=== PATIENT | male | born 1945 | race Caucasian/White ===

== ENCOUNTER → 2017-06-05 | Day surgery (SDC) | payer MEDICARE ==
[~2017-06-05] VITALS: Ht 157.5 cm; Wt 73.6 kg
[~2017-06-05] MED LIST: CHLORHEXIDINE GLUCONATE 2 % 1 PACK (2 CLOTHS) TOPICAL PRN; FLURBIPROFEN 0.03% OPHT SOLN 2.5 ML BTL RIGHT EYE SCH; HYALURONIDASE/LIDOCAINE/BUPIVACAINE 5 ML SYR ONE; HYDR25TA5 PO; INSULIN HUMAN REGULAR 1,000 UNITS/10 ML VIAL SQ PRN; LACTATED RINGER'S 1000 ML IV PRN; LIDOCAINE HCL 1% PF 30 ML VIAL ONE; LISI40TA PO; METF500T PO; METOPROLOL TARTRATE 25 MG TAB PO PRN; POVIDONE IODINE 5% (ANTISEPSIS KIT) 4 APPLICATIONS EACH NARE PRN; PROPARACAINE HCL 0.5% OPHT SOLN 15 ML BTL RIGHT EYE ONE; PROPOFOL 200 MG/20 ML AMP ONE; SIMV40TA PO; SODIUM CHLORID 0.9% 500 ML IV PRN; TOBRAMYCIN/DEXAMETHASONE OPTH OINT 3.5 GM TUBE ONE
[2017-06-05 08:00] VITALS: PULSE 67
[2017-06-05] MEDS: PHENYLEPHRINE HCL 10% OPTH SOLN 5 ML BTL RIGHT EYE SCH ×4 (08:05→08:20)
[2017-06-05] MEDS: TROPICAMIDE 1% OPHT SOLN 15 ML BTL RIGHT EYE SCH ×4 (08:05→08:20)
[2017-06-05] MEDS: CYCLOPENTOLATE HCL 1% OPHT SOLN 2 ML BTL RIGHT EYE SCH ×4 (08:05→08:20)
[2017-06-05 08:45] VITALS: PULSE 71
[2017-06-05 09:41] VITALS: TEMP 98.2
[2017-06-05 10:10] VITALS: BP 121/65; PULSE 71; RESP 14; O2SAT 97
--- NOTE | 2017-06-05 10:14 | MP ---
cc: WAYNE SINGH M.D. FORMERLY [facility], [facility] #[id number] DATE OF SURGERY 06/05/2017 PREOPERATIVE DIAGNOSIS Visually significant cataract right eye. POSTOPERATIVE DIAGNOSIS Visually significant cataract right eye. OPERATION Phacoemulsification with posterior chamber lens implantation, right eye. SURGEON Wayne Singh MD ANESTHESIA Retrobulbar with MAC. COMPLICATIONS None PROCEDURE After informed consent was obtained, the patient was brought into the operative suite and placed on appropriate monitors by the Anesthesia Service. The patient had received a prior retrobulbar injection of local anesthetic by the Anesthesia Service in the holding area. The patient's operative eye was then prepped and draped in the usual sterile fashion. A wire lid speculum was placed. A paracentesis incision was made in the peripheral cornea with a 1 mm jazmin keratome. The anterior chamber was filled with viscoelastic. The anterior chamber was then entered through a stepped, clear corneal incision using a sharp 3 mm jazmin keratome. A circular tear capsulorrhexis was then made with a bent needle cystitome. Following hydrodissection of the lens nucleus with balanced saline, phacoemulsification of the nucleus was performed using a modified chopping technique. The remaining cortex was removed with irrigation/aspiration. The prior two procedures were both performed using the handpieces of the [employer] phaco unit. The capsular bag was then filled with viscoelastic. The intraocular lens was then injected into the capsular bag and positioned. The type of intraocular lens and its power can be found elsewhere in this chart. The remaining viscoelastic was then removed from the anterior chamber with the IA handpiece. The anterior chamber was reformed with balanced saline. The wound was then closed securely with stromal hydration. It was found to be watertight to an intraocular pressure of at least 30 mmHg by palpation. A small amount of balanced salt solution was then removed through the paracentesis site and the intraocular pressure at the end of the case was approximately 20 by palpation. All drapes were then removed. TobraDex ointment was then placed in the eye, which was closed beneath a semi-pressure patch dressing. The patient tolerated this procedure well and left the operating room awake and alert. The patient is to follow-up in my office in the morning. ADDENDUM After the clear corneal incisions were sealed water-tight, an 8-mm limbal relaxing incision was made with a 600 micron jazmin blade, centered around a nasal 180 degree meridian. MD GINA Bearden/JEANMARIE /10:07 AM /10:09 AM
== END | disposition home or self-care (01) ==
LOC: PHSDC 07:01
PROVIDERS: ATTEND Optometrist Occupational Vision
DX: H25.11 Age-related nuclear cataract, right eye (principal)
CPT/HCPCS: 00142; 66984; J7040; V2632

== ENCOUNTER 2018-04-09 08:49 | Inpatient (IN) ==
[2018-04-09] MEDS ORDERED: Metoprolol Inj 5 MG/5 ML Vial IV.PUSH STA ×2 (09:02→09:38)
[2018-04-09 09:19] LABS: Baso # (Auto) 0.2 th/mm3 (0.0-0.2); Baso % (Auto) 1.7 % (0.0-2.0); Eos # (Auto) 0.1 th/mm3 (0.0-0.4); Eos % (Auto) 1.3 % (0.0-4.0); Hematocrit 43.5 % (39.0-51.0); Hemoglobin 14.5 gm/dL (13.0-17.0); Lymph # (Auto) 1.1 th/mm3 (1.0-4.8); Lymph % (Auto) 11.7 % (9.0-44.0); Mean Corpuscular HGB Conc 33.4 % (32.0-36.0); Mean Corpuscular Hemoglobin 30.4 pg (27.0-34.0); Mean Platelet Volume 8.7 fL (7.0-11.0); Mono # (Auto) 0.5 th/mm3 (0.0-0.9); Neut # (Auto) 7.7 th/mm3 (1.8-7.7); Neut % (Auto) 80.3 % (16.0-70.0); Platelet Count 236 th/mm3 (150-450); Red Blood Count 4.78 mil/mm3 (4.50-5.90); White Blood Count 9.6 th/mm3 (4.0-11.0)
[2018-04-09 09:52] LABS: Albumin 3.8 g/dL (3.4-5.0); Carbon Dioxide 24.5 meq/L (21.0-32.0)
[2018-04-09 09:53] LABS: Calcium 8.7 mg/dL (8.5-10.1); Glucose,Random 142 mg/dL (74-106)
[2018-04-09 09:56] LABS: Alanine Aminotransferase 22 U/L (12-78); Glomerular Filtration Rate 50 mL/min (>89)
[2018-04-09 09:57] LABS: Anion Gap 10 meq/L (5-15); Chloride 105 meq/L (98-107); Potassium 4.4 meq/L (3.5-5.1); Sodium 139 meq/L (136-145); Total Protein 7.7 g/dL (6.4-8.2)
[2018-04-09 09:58] LABS: Aspartate Aminotransferase 23 U/L (15-37)
--- NOTE | 2018-04-09 09:58 | XR ---
EXAM DATE: 04/09/2018 9:38 AM EDT AGE/SEX: 72 years / Male INDICATIONS: Increased heart rate. CLINICAL DATA: This is the patient's initial encounter. Patient reports that signs and symptoms have been present for 1 day and indicates a pain score of 0/10. MEDICAL/SURGICAL HISTORY: Hypertension. None. COMPARISON: No prior exams available for comparison. FINDINGS: A single AP view of the chest demonstrates the lungs to be symmetrically aerated without evidence of mass, infiltrate or effusion. The cardiomediastinal contours are unremarkable. Osseous structures a re intact. CONCLUSION: Negative examination. Electronically signed by: Oleg Campa MD 04/09/2018 9:57 AM EDT
[2018-04-09 09:59] LABS: Alkaline Phosphatase 105 U/L (45-117); Creatine Kinase 184 U/L (39-308)
[2018-04-09 10:06] LABS: Blood Urea Nitrogen 22 mg/dL (7-18)
[2018-04-09 10:17] LABS: Creatine Kinase MB 2.4 ng/mL (0.5-3.6)
[2018-04-09] MEDS ORDERED: dilTIAZem Inj 125 MG in Sodium Chlor 0.9% Inj 100 ML IV.CONT PRN (10:37)
--- NOTE | 2018-04-09 11:13 | ED ---
HPI General Chief complaint: Arrhythmia/Palpitations Stated complaint: Cardiac complaint Time Seen by Provider: 04/09/18 08:56 History of Present Illness HPI narrative: 72 male here for evaluation new onset A. fib. Patient was scheduled to have cataract surgery this morning, was found to have A. fib with RVR on the monitor, was sent from the preop floor to the ER for further evaluation. Patient currently has no chest pain or swelling or any complaints, he says he feels "fine". Denies any symptoms in the past, he never had A. fib bad before, he only has history of hypertension and dyslipidemia. He takes metformin for prediabetes. Related Data Home Medications Medication Instructions Recorded Confirmed hydrochlorothiazide 25 mg PO DAILY 04/08/18 04/09/18 lisinopril 40 mg PO DAILY 04/08/18 04/09/18 metformin 500 mg PO DAILY 04/08/18 04/09/18 simvastatin 40 mg PO QPM 04/08/18 04/09/18 Previous Rx's Medication Instructions Recorded apixaban [Eliquis] 5 mg PO BID 30 Days #60 tab 04/09/18 metoprolol tartrate 25 mg PO BID 30 Days #60 tab 04/09/18 Allergies Allergy/AdvReac Type Severity Reaction Status Date / Time bee venom protein (honey bee) Allergy Intermediate EDEMA Verified 04/09/18 08:10 Review of Systems ROS: all other systems reviewed are negative FOR[facility]LY [facility] Medical History Medical History Cataract, left eye (Acute) Chronic kidney disease (Acute) Fuchs' corneal dystrophy (Acute) Herniated cervical disc (Acute) History of needle biopsy (Acute) Hyperlipidemia (Acute) Hypertension (Acute) Lumbar radiculopathy (Acute) Prostate cancer (Acute) Type 2 diabetes mellitus (Acute) Vitamin D deficiency (Acute) Surgical History Surgical History History of Descemet's stripping endothelial keratoplasty (DSEK) (Acute) History of right cataract surgery (Acute) Hx of colonoscopy (Acute) Social History Social History Substance History: No History of Abuse Smoking Status: Never smoker How Often Do You Have a Drink Containing Alcohol: Never Immunization History Tetanus Immunization: <5 Years Hx Influenza Vaccine This Season: Yes Exam Narrative Exam Narrative: GENERAL: Alert oriented 3 no acute distress. SKIN: Focused skin assessment warm/dry. HEAD: Atraumatic. Normocephalic. EYES: Pupils equal and round. No scleral icterus. No injection or drainage. ENT: No nasal bleeding or discharge. Mucous membranes pink and moist. NECK: Trachea midline. No JVD. CARDIOVASCULAR: Regular rate and rhythm. No murmur appreciated. RESPIRATORY: No accessory muscle use. Clear to auscultation. Breath sounds equal bilaterally. GASTROINTESTINAL: Abdomen soft, non-tender, nondistended. Hepatic and splenic margins not palpable. MUSCULOSKELETAL: No obvious deformities. No clubbing. No cyanosis. No edema. NEUROLOGICAL: Awake and alert. No obvious cranial nerve deficits. Motor grossly within normal limits. Normal speech. PSYCHIATRIC: Appropriate mood and affect; insight and judgment normal. Course Initial Documented Vital Signs Temperature 97.1 F L 04/09/18 09:01 Pulse Rate 144 H 04/09/18 09:01 Respiratory Rate 18 04/09/18 09:01 Blood Pressure 109/67 04/09/18 09:01 Pulse Oximetry 95 04/09/18 09:01 Last Documented Vital Signs Temperature 98.0 F 04/09/18 13:45 Pulse Rate 53 L 04/09/18 15:01 Respiratory Rate 17 04/09/18 15:01 Blood Pressure 124/61 04/09/18 15:01 Pulse Oximetry 99 04/09/18 15:01 Medical Decision Making [facility] Narrative Medical decision making narrative: 72 male new onset A. fib with RVR, received 2.5 mg of Lopressor, repeat doses of 5 mg with no adequate response, Cardizem drip started for rate control, patient is asymptomatic, blood pressure is stable , EKG shows A. fib with RVR. I spoke with Dr. Boateng special needs tutor secured entrance monitor he recommends that to send the patient to the [facility] ambulation as needed meanwhile patient will be admitted for further evaluation. Medical Screen Exam Complete: Yes Emergency Medical Condition: Yes Lab Data Result diagrams: 04/09/18 09:15 04/09/18 09:15 Lab Results 04/09/18 04/09/18 04/09/18 Range/Units 09:15 09:15 09:15 CBC w Diff Auto diff final WBC 9.6 (4.0-11.0) th/mm3 RBC 4.78 (4.50-5.90) mil/mm3 Hgb 14.5 (13.0-17.0) gm/dL Hct 43.5 (39.0-51.0) % MCV 91.0 (80.0-100.0) fL MCH 30.4 (27.0-34.0) pg MCHC 33.4 (32.0-36.0) % RDW 13.0 (11.6-17.2) % Plt Count 236 (150-450) th/mm3 MPV 8.7 (7.0-11.0) fL Neut % (Auto) 80.3 H (16.0-70.0) % Lymph % (Auto) 11.7 (9.0-44.0) % [place] % (Auto) 5.0 (0.0-8.0) % Eos % (Auto) 1.3 (0.0-4.0) % Baso % (Auto) 1.7 (0.0-2.0) % Neut # (Auto) 7.7 (1.8-7.7) th/mm3 Lymph # (Auto) 1.1 (1.0-4.8) th/mm3 [place] # (Auto) 0.5 (0.0-0.9) th/mm3 Eos # (Auto) 0.1 (0.0-0.4) th/mm3 Baso # (Auto) 0.2 (0.0-0.2) th/mm3 WBC Differential . Differential Comment . D-Dimer Quant (PE/DVT) 0.41 (0.00-0.50) mg/L FEU Sodium (136-145) meq/L Potassium (3.5-5.1) meq/L Chloride (98-107) meq/L Carbon Dioxide (21.0-32.0) meq/L Anion Gap (5-15) meq/L BUN (7-18) mg/dL Creatinine (0.60-1.30) mg/dL Estimated GFR (>89) mL/min Random Glucose (74-106) mg/dL Calcium (8.5-10.1) mg/dL Total Bilirubin (0.2-1.0) mg/dL AST (15-37) U/L ALT (12-78) U/L Alkaline Phosphatase (45-117) U/L Total Creatine Kinase (39-308) U/L CK-MB (CK-2) (0.5-3.6) ng/mL Troponin I (0.02-0.05) ng/mL B-Natriuretic Peptide 37 (0-100) pg/mL Total Protein (6.4-8.2) g/dL Albumin (3.4-5.0) g/dL 04/09/18 04/09/18 Range/Units 09:15 15:20 CBC w Diff WBC (4.0-11.0) th/mm3 RBC (4.50-5.90) mil/mm3 Hgb (13.0-17.0) gm/dL Hct (39.0-51.0) % MCV (80.0-100.0) fL MCH (27.0-34.0) pg MCHC (32.0-36.0) % RDW (11.6-17.2) % Plt Count (150-450) th/mm3 MPV (7.0-11.0) fL Neut % (Auto) (16.0-70.0) % Lymph % (Auto) (9.0-44.0) % [place] % (Auto) (0.0-8.0) % Eos % (Auto) (0.0-4.0) % Baso % (Auto) (0.0-2.0) % Neut # (Auto) (1.8-7.7) th/mm3 Lymph # (Auto) (1.0-4.8) th/mm3 [place] # (Auto) (0.0-0.9) th/mm3 Eos # (Auto) (0.0-0.4) th/mm3 Baso # (Auto) (0.0-0.2) th/mm3 WBC Differential Differential Comment D-Dimer Quant (PE/DVT) (0.00-0.50) mg/L FEU Sodium 139 (136-145) meq/L Potassium 4.4 (3.5-5.1) meq/L Chloride 105 (98-107) meq/L Carbon Dioxide 24.5 (21.0-32.0) meq/L Anion Gap 10 (5-15) meq/L BUN 22 H (7-18) mg/dL Creatinine 1.40 H (0.60-1.30) mg/dL Estimated GFR 50 L (>89) mL/min Random Glucose 142 H (74-106) mg/dL Calcium 8.7 (8.5-10.1) mg/dL Total Bilirubin 0.4 (0.2-1.0) mg/dL AST 23 (15-37) U/L ALT 22 (12-78) U/L Alkaline Phosphatase 105 (45-117) U/L Total Creatine Kinase 184 (39-308) U/L CK-MB (CK-2) 2.4 (0.5-3.6) ng/mL Troponin I Less than 0.02 L Less than 0.02 L (0.02-0.05) ng/mL B-Natriuretic Peptide (0-100) pg/mL Total Protein 7.7 (6.4-8.2) g/dL Albumin 3.8 (3.4-5.0) g/dL Imaging Data Radiologist's impression: Chest X-Ray 04/09/18 09:03 CONCLUSION: Negative examination. Discharge Plan Discharge Disposition Patient Disposition: 01 Discharge Home Discharge Condition Condition: Stable Discharge Order Discharge Orders: Discharge Order (Routine); Ordered 04/09/18 Ordered By: Marta Moseley Discharge Details Anticipated Discharge Date: 04/09/18 Physicians Team ED Provider: Parish Mondragon Primary Care Provider: Aric Boateng Attending Provider: Jaret Hernandez Other Providers: Lobito Boateng Status ED Status: Left Department Discharge Information Discharge Date/Time: 04/09/18 13:04
[2018-04-09] MEDS ORDERED: Acetaminophen 325 MG Tablet PO PRN (12:07)
[2018-04-09] MEDS ORDERED: Dextrose 50% in Water 50 ML Vial IV.PUSH PRN ×2 (12:08→12:26)
[2018-04-09] MEDS ORDERED: Sod Chloride 0.9% Inj 1,000 ML IV.CONT SCH (12:15)
[2018-04-09] MEDS ORDERED: Bisacodyl 10 MG Supp RECTAL PRN (12:29)
--- NOTE | 2018-04-09 12:38 | P.HP ---
History of Present Illness Service: CP hospitalist Primary Care Physician: Aric Boateng Chief Complaint: sent by OR for atrial fib History of Present Illness: HPI narrative: 72 male here for evaluation new onset A. fib. Patient was scheduled to have cataract surgery this morning, was found to have A. fib with RVR on the monitor, was sent from the preop floor to the ER for further evaluation. Patient currently has no chest pain or swelling or any complaints, he says he feels "fine". Denies any symptoms in the past, he never had A. fib bad before, he only has history of hypertension and dyslipidemia. He takes metformin for prediabetes. Patient was given doses of metoprolol without success and started on cradiazem drip ,with improvement in heart rate will transfer to hospital [facility] consult cardiology get 2d echo. - Diagnosis (1) Atrial fibrillation (2) Hypertension Inpatient Certification: I certify that the inpatient services were ordered in accordance with Medicare regulations governing the order. This includes certification that hospital inpatient services are reasonable and necessary and in the case of services not specified as inpatient-only under 42 CFR 419.22(n), that they are appropriately provided as inpatient services in accordance to with the 2-midnight benchmark under 43 CFR 412.3(e) Estimated Total Length of Stay (Days): 3 Plans for Post Hospital Care: Not yet determined Review of Systems All other systems reviewed negative except as stated in HPI PMFSH - History History Provided By: Patient, Family Member - Medical History Medical History: Medical History (Last Updated 04/08/18 @ 11:53 by Dudley Bear) Cataract, left eye Chronic kidney disease Fuchs' corneal dystrophy Herniated cervical disc History of needle biopsy Hyperlipidemia Hypertension Lumbar radiculopathy Prostate cancer Type 2 diabetes mellitus Vitamin D deficiency - Surgical History Surgical History: Surgical History (Last Updated 04/08/18 @ 11:53 by Dudley Bear) History of Descemet's stripping endothelial keratoplasty (DSEK) History of right cataract surgery Hx of colonoscopy - Tobacco History Smoking Status: Never smoker - Alcohol History How Often Do You Have a Drink Containing Alcohol: Never - Substance Use History Substance History: No History of Abuse - Travel History Recent Travel in the [place] Within the Last 8 Weeks: No Recent Travel Out of the Country Within the Last 8 Weeks: No - Immunization History Tetanus Immunization: <5 Years Hx Influenza Vaccine This Season: Yes Medications and Allergies Active Medications: Active Medications Acetaminophen (Tylenol) 650 mg PO Q4H PRN PRN Reason: Temp > 100.4 Al Hydroxide/Mg Hydroxide (Milk Of Collins Liq) 30 ml PO Q12H PRN PRN Reason: Mild Constipation Bisacodyl (Dulcolax Supp) 10 mg RECTAL DAILY PRN PRN Reason: SEVERE CONSITIPATION Dextrose (D50w Vial) 50 ml IV.PUSH UNSCH PRN PRN Reason: PER HYPOGLYCEMIA PROTOCOL Dextrose (D50w Vial) 50 ml IV.PUSH UNSCH PRN PRN Reason: PER HYPOGLYCEMIA PROTOCOL Glucagon (Glucagon Inj) 1 mg OTHER PRN PRN PRN Reason: for Hypoglycemia Protocol Glucagon (Glucagon Inj) 1 mg OTHER PRN PRN PRN Reason: for Hypoglycemia Protocol Hydrochlorothiazide (Hydrodiuril) 25 mg PO DAILY [facility] Diltiazem HCl 125 mg/ Sodium (Chloride) 125 mls @ 5 mls/hr IV.CONT TITRATE PRN ; Protocol PRN Reason: Per Protocol Last Titration: 04/09/18 12:17 Dose: 15 mg/hr, 15 mls/hr Sodium Chloride (Ns Inj) 1,000 mls @ 75 mls/hr IV.CONT .[id number] SHITAL Stop: 04/10/18 01:34 Last Admin: 04/09/18 12:20 Dose: 75 mls/hr Insulin Aspart (Novolog Insulin Correctional Sugar Inj) 0 unit SQ ACHS SHITAL; Protocol Insulin Human Regular (Novolin R Correctional Sugar Inj) 0 units SQ Q6HR SHITAL; Protocol Non-Formulary Medication (Lisinopril [Lisinopril]) 40 mg PO DAILY [facility] Non-Formulary Medication (Metformin [Metformin]) 500 mg PO DAILY [facility] Non-Formulary Medication (Simvastatin [Simvastatin]) 40 mg PO QPM [facility] Ondansetron HCl (Zofran Inj) 4 mg IV.PUSH Q6H PRN PRN Reason: NAUSEA OR VOMITING Senna/Docusate Sodium (Eileen-Colace) 1 tab PO BID [facility] Sennosides (Senokot) 17.2 mg PO Q12H PRN PRN Reason: Moderate Constipation Allergies Allergy/AdvReac Type Severity Reaction Status Date / Time bee venom protein (honey bee) Allergy Intermediate EDEMA Verified 04/09/18 08:10 Home Medications Medication Instructions Recorded Confirmed Type hydrochlorothiazide 25 mg PO DAILY 04/08/18 04/09/18 History lisinopril 40 mg PO DAILY 04/08/18 04/09/18 History metformin 500 mg PO DAILY 04/08/18 04/09/18 History simvastatin 40 mg PO QPM 04/08/18 04/09/18 History Exam Vital signs: Vital Signs 04/09/18 09:01 04/09/18 09:35 04/09/18 09:50 Temperature 97.1 F L Pulse Rate 144 H 140 H 113 H Respiratory Rate 18 18 18 Blood Pressure 109/67 106/67 120/80 Pulse Oximetry 95 98 96 04/09/18 11:09 Temperature Pulse Rate 135 H Respiratory Rate 18 Blood Pressure 112/65 Pulse Oximetry 95 Intake & Output 04/08/18 04/09/18 04/09/18 18:59 06:59 18:59 Output Total 500 / 500 Balance -500 / -500 Weight 72.575 kg Output: Urine 500 / 500 Narrative: GENERAL: SKIN: Warm and dry. HEAD: Normocephalic. EYES: No scleral icterus. No injection or drainage. NECK: Supple, trachea midline. No JVD or lymphadenopathy. CARDIOVASCULAR: IRREG rate and rhythm without murmurs, gallops, or rubs. RESPIRATORY: Breath sounds equal bilaterally. No accessory muscle use. GASTROINTESTINAL: Abdomen soft, non-tender, nondistended. MUSCULOSKELETAL: No cyanosis, or edema. BACK: Nontender without obvious deformity. No CVA tenderness. Results - Labs CBC & Chem 7: 04/09/18 09:15 04/09/18 09:15 Labs: Laboratory Results - last 24 hr 04/09/18 04/09/18 04/09/18 09:15 09:15 09:15 CBC w Diff Auto diff final WBC 9.6 RBC 4.78 Hgb 14.5 Hct 43.5 MCV 91.0 MCH 30.4 MCHC 33.4 RDW 13.0 Plt Count 236 MPV 8.7 Neut % (Auto) 80.3 H Lymph % (Auto) 11.7 [place] % (Auto) 5.0 Eos % (Auto) 1.3 Baso % (Auto) 1.7 Neut # (Auto) 7.7 Lymph # (Auto) 1.1 [place] # (Auto) 0.5 Eos # (Auto) 0.1 Baso # (Auto) 0.2 WBC Differential . Differential Comment . D-Dimer Quant (PE/DVT) 0.41 Sodium Potassium Chloride Carbon Dioxide Anion Gap BUN Creatinine Estimated GFR Random Glucose Calcium Total Bilirubin AST ALT Alkaline Phosphatase Total Creatine Kinase CK-MB (CK-2) Troponin I B-Natriuretic Peptide 37 Total Protein Albumin 04/09/18 09:15 CBC w Diff WBC RBC Hgb Hct MCV MCH MCHC RDW Plt Count MPV Neut % (Auto) Lymph % (Auto) [place] % (Auto) Eos % (Auto) Baso % (Auto) Neut # (Auto) Lymph # (Auto) [place] # (Auto) Eos # (Auto) Baso # (Auto) WBC Differential Differential Comment D-Dimer Quant (PE/DVT) Sodium 139 Potassium 4.4 Chloride 105 Carbon Dioxide 24.5 Anion Gap 10 BUN 22 H Creatinine 1.40 H Estimated GFR 50 L Random Glucose 142 H Calcium 8.7 Total Bilirubin 0.4 AST 23 ALT 22 Alkaline Phosphatase 105 Total Creatine Kinase 184 CK-MB (CK-2) 2.4 Troponin I Less than 0.02 L B-Natriuretic Peptide Total Protein 7.7 Albumin 3.8 - Imaging Impressions Chest X-Ray 04/09/18 09:03 CONCLUSION: Negative examination. Caprini VTE Risk Assessment Caprini VTE Risk Assessment: Moderate/High Risk (score >= 2) Caprini Risk Assessment Model: Point Value = 1 Point Value = 2 Point Value = 3 Point Value = 5 Age 41-60 Minor surgery BMI > 25 kg/m2 Swollen legs Varicose veins or History of unexplained or recurrent spontaneous Oral contraceptives or hormone replacement Sepsis (< 1 month) Serious lung disease, including pneumonia (< 1 month) Abnormal pulmonary function Acute myocardial infarction Congestive heart failure (< 1 month) History of inflammatory bowel disease Medical patient at bed rest Age 61-74 Arthroscopic surgery Major open surgery (> 45 min) Laparoscopic surgery (> 45 min) Malignancy Confined to bed (> 72 hours) Immobilizing plaster cast Central venous access Age >= 75 History of VTE Family history of VTE Factor V Leiden Prothrombin [id number] Lupus anticoagulant Anticardiolipin antibodies Elevated serum homocysteine Heparin-induced thrombocytopenia Other congenital or acquired thrombophilia Stroke (< 1 month) Elective arthroplasty Hip, pelvis, or leg fracture Acute spinal cord injury (< 1 month) Prophylaxis Regimen: Total Risk Factor Score Risk Level Prophylaxis Regimen 0-1 Low Early ambulation 2 Moderate Order ONE of the following: *Sequential Compression Device (SCD) *Heparin 5000 units SQ BID 3-4 Higher Order ONE of the following medications: *Heparin 5000 units SQ TID *Enoxaparin/Lovenox 40 mg SQ daily (WT < 150 kg, CrCl > 30 mL/min) *Enoxaparin/Lovenox 30 mg SQ daily (WT < 150 kg, CrCl > 10-29 mL/min) *Enoxaparin/Lovenox 30 mg SQ BID (WT < 150 kg, CrCl > 30 mL/min) AND/OR *Sequential Compression Device (SCD) 5 or more Highest Order ONE of the following medications: *Heparin 5000 units SQ TID (Preferred with Epidurals) *Enoxaparin/Lovenox 40 mg SQ daily (WT < 150 kg, CrCl > 30 mL/min) *Enoxaparin/Lovenox 30 mg SQ daily (WT < 150 kg, CrCl > 10-29 mL/min) *Enoxaparin/Lovenox 30 mg SQ BID (WT < 150 kg, CrCl > 30 mL/min) AND *Sequential Compression Device (SCD) Assessment and Plan - Assessment (1) Atrial fibrillation Code(s): I48.91 - Unspecified atrial fibrillation Status: Acute Plan: new onset a fib-cardiazem drip consult cardiology hold further anticoag for now patient very sensitive to asa even low dose (2) Hypertension Code(s): I10 - Essential (primary) hypertension Status: Acute Plan: continue lisinopril - Plan plan as above is pre diabetic on metformin hold for now use sliding scale Code Status: full Discussed Condition With: patient
--- NOTE | 2018-04-09 15:25 | P.DS ---
Date of admission: 04/09/18 11:06 Primary care physician: Aric Boateng Attending physician on discharge: Jaret Hernandez Anticipated date of discharge: 04/09/18 Brief History from admission: HPI narrative: 72 male here for evaluation new onset A. fib. Patient was scheduled to have cataract surgery this morning, was found to have A. fib with RVR on the monitor, was sent from the preop floor to the ER for further evaluation. Patient currently has no chest pain or swelling or any complaints, he says he feels "fine". Denies any symptoms in the past, he never had A. fib bad before, he only has history of hypertension and dyslipidemia. He takes metformin for prediabetes. Patient was given doses of metoprolol without success and started on cradiazem drip ,with improvement in heart rate will transfer to [facility] consult cardiology get 2d echo. DS: Diagnosis - Discharge Diagnosis (1) Atrial fibrillation Status: Acute (2) Hypertension Status: Acute DS: Medications - Discharge Medications Prescriptions: apixaban [Eliquis] 5 mg PO BID 30 Days #60 tab metoprolol tartrate 25 mg PO BID 30 Days #60 tab DS: Summary Hospital Course: Atrial fibrillation new onset a fib - patient asymptomatic converted with Cardizem drip consult cardiology - patient seen by Dr. Boateng and cleared for DC recommended adding metoprolol 25 mg PO BID and Eliquis 5 mg PO BID chads 2 vas score of 3 (almost 2 by age) patient to follow up with cardiology Dr. Boateng in 1-2 weeks for further treatment and to discuss results of echocardiogram DC patient after echocardiogram completed Hypertension continue lisinopril - Time Spent with Patient Total time spent providing and/or coordinating discharge services: Greater than 30 minutes Exam Vital signs: Vital Signs 04/09/18 09:01 04/09/18 09:35 04/09/18 09:50 Temperature 97.1 F L Pulse Rate 144 H 140 H 113 H Respiratory Rate 18 18 18 Blood Pressure 109/67 106/67 120/80 Pulse Oximetry 95 98 96 04/09/18 11:09 04/09/18 13:45 Temperature 98.0 F Pulse Rate 135 H 76 Respiratory Rate 18 20 Blood Pressure 112/65 109/64 Pulse Oximetry 95 96 Intake & Output 04/08/18 04/09/18 04/09/18 18:59 06:59 18:59 Output Total 500 / 500 Balance -500 / -500 Weight 72.575 kg Output: Urine 500 / 500 Narrative: GENERAL: This is a well-nourished, well-developed patient, in no apparent distress. CARDIOVASCULAR: bradycardia RESPIRATORY: Clear to auscultation. Breath sounds equal bilaterally. GASTROINTESTINAL: Abdomen soft, non-tender, nondistended. Normal active bowel sounds MUSCULOSKELETAL: Extremities without clubbing, cyanosis, or edema. NEURO: Alert & Oriented. Moves all ext x4 Results Procedures completed during hospitalization: none Labs on day of discharge: Labs from last 24 hours 04/09/18 04/09/18 04/09/18 09:15 09:15 09:15 CBC w Diff Auto diff final WBC 9.6 RBC 4.78 Hgb 14.5 Hct 43.5 MCV 91.0 MCH 30.4 MCHC 33.4 RDW 13.0 Plt Count 236 MPV 8.7 Neut % (Auto) 80.3 H Lymph % (Auto) 11.7 [place] % (Auto) 5.0 Eos % (Auto) 1.3 Baso % (Auto) 1.7 Neut # (Auto) 7.7 Lymph # (Auto) 1.1 [place] # (Auto) 0.5 Eos # (Auto) 0.1 Baso # (Auto) 0.2 WBC Differential . Differential Comment . D-Dimer Quant (PE/DVT) Sodium 139 Potassium 4.4 Chloride 105 Carbon Dioxide 24.5 Anion Gap 10 BUN 22 H Creatinine 1.40 H Estimated GFR 50 L Random Glucose 142 H Calcium 8.7 Total Bilirubin 0.4 AST 23 ALT 22 Alkaline Phosphatase 105 Total Creatine Kinase 184 CK-MB (CK-2) 2.4 Troponin I Less than 0.02 L B-Natriuretic Peptide 37 Total Protein 7.7 Albumin 3.8 04/09/18 09:15 CBC w Diff WBC RBC Hgb Hct MCV MCH MCHC RDW Plt Count MPV Neut % (Auto) Lymph % (Auto) [place] % (Auto) Eos % (Auto) Baso % (Auto) Neut # (Auto) Lymph # (Auto) [place] # (Auto) Eos # (Auto) Baso # (Auto) WBC Differential Differential Comment D-Dimer Quant (PE/DVT) 0.41 Sodium Potassium Chloride Carbon Dioxide Anion Gap BUN Creatinine Estimated GFR Random Glucose Calcium Total Bilirubin AST ALT Alkaline Phosphatase Total Creatine Kinase CK-MB (CK-2) Troponin I B-Natriuretic Peptide Total Protein Albumin - Impressions ITS Impressions Chest X-Ray 04/09/18 09:03 CONCLUSION: Negative examination. Discharge Plan - Discharge Disposition Patient Disposition: 01 Discharge Home - Discharge Condition Condition: Stable - Discharge Order Discharge Orders: Discharge Order (Routine); Ordered 04/09/18 Ordered By: Marta Moseley - Discharge Details Anticipated Discharge Date: 04/09/18 - Physicians Team Primary Care Provider: Aric Boateng Attending Provider: Jaret Hernandez Other Providers: Lobito Boateng DO
--- NOTE | 2018-04-09 15:32 | P.CONCA ---
History of Present Illness Service: [facility] cardiology Consult date: 04/09/18 Requesting Physician: Parish Mnodragon Reason for Consult: atrial fibrillation with RVR Primary Care Provider: Aric Boateng Chief Complaint: sent by OR for atrial fib History of Present Illness: 72 gentleman with hypertension, dyslipidemia, impaired fasting glucose on Metformin, and was referred to [facility] ER after he was scheduled to have cataract surgery this morning and was found to have A. fib with RVR on the monitor. Was sent from the preop floor to the ER for further evaluation. Patient denies any symptoms of chest pain, palpitations, dyspnea at rest or upon exertion, lower extremity edema, PND, orthopnea, exercise capacity limitations, lightheadedness/dizziness. He states that he feels completely normal and has no complaints. He has no known history of atrial fibrillation or other cardiac disease. In the ER, patient was given doses of 2.5 mg Lopressor 2 without success and started on Cardizem gtt which was uptitrated to 15 mg/hr and the patient was transferred to [facility] for further management. Patient had adequate HR control 70s bpm while on the Cardizem drip at 15 mg/ hour. Shortly thereafter, he spontaneously cardioverted to normal sinus rhythm with HR 54 bpm. An EKG was obtained which revealed sinus bradycardia 52 bpm, no significant ST-T wave abnormality, low voltage QRS in the precordial leads, and normal QTC. Patient is asymptomatic and feels well. He denies any bleeding issues including bright red blood per rectum, melanotic stools, hematemesis or hematuria. He reports history of easy bruising on full dose aspirin. Review of Systems All other systems reviewed negative except as stated in HPI PMFSH - History History Provided By: Patient, Family Member - Medical History Medical History: Medical History (Last Updated 04/08/18 @ 11:53 by Dudley Bear) Cataract, left eye Chronic kidney disease Fuchs' corneal dystrophy Herniated cervical disc History of needle biopsy Hyperlipidemia Hypertension Lumbar radiculopathy Prostate cancer Type 2 diabetes mellitus Vitamin D deficiency - Surgical History Surgical History: Surgical History (Last Updated 04/08/18 @ 11:53 by Dudley Bear) History of Descemet's stripping endothelial keratoplasty (DSEK) History of right cataract surgery Hx of colonoscopy - Tobacco History Smoking Status: Never smoker - Alcohol History How Often Do You Have a Drink Containing Alcohol: Never - Substance Use History Substance History: No History of Abuse - Travel History Recent Travel in the [place] Within the Last 8 Weeks: No Recent Travel Out of the Country Within the Last 8 Weeks: No - Immunization History Tetanus Immunization: <5 Years Hx Influenza Vaccine This Season: Yes Medications and Allergies Active Medications: Active Medications Acetaminophen (Tylenol) 650 mg PO Q4H PRN PRN Reason: Temp > 100.4 Al Hydroxide/Mg Hydroxide (Milk Of Magnjonathan Liq) 30 ml PO Q12H PRN PRN Reason: Mild Constipation Bisacodyl (Dulcolax Supp) 10 mg RECTAL DAILY PRN PRN Reason: SEVERE CONSITIPATION Dextrose (D50w Vial) 50 ml IV.PUSH UNSCH PRN PRN Reason: PER HYPOGLYCEMIA PROTOCOL Dextrose (D50w Vial) 50 ml IV.PUSH UNSCH PRN PRN Reason: PER HYPOGLYCEMIA PROTOCOL Glucagon (Glucagon Inj) 1 mg OTHER PRN PRN PRN Reason: for Hypoglycemia Protocol Glucagon (Glucagon Inj) 1 mg OTHER PRN PRN PRN Reason: for Hypoglycemia Protocol Hydrochlorothiazide (Hydrodiuril) 25 mg PO DAILY [facility] Diltiazem HCl 125 mg/ Sodium (Chloride) 125 mls @ 5 mls/hr IV.CONT TITRATE PRN ; Protocol PRN Reason: Per Protocol Last Titration: 04/09/18 14:08 Dose: 0 mg/hr, 0 mls/hr Sodium Chloride (Ns Inj) 1,000 mls @ 75 mls/hr IV.CONT .[id number] [facility] Stop: 04/10/18 01:34 Last Admin: 04/09/18 12:20 Dose: 75 mls/hr Insulin Aspart (Novolog Insulin Correctional Sugar Inj) 0 unit SQ ACHS [facility]; Protocol Lisinopril (Prinivil) 40 mg PO DAILY [facility] Metformin HCl (Glucophage) 500 mg PO DAILY [facility] Ondansetron HCl (Zofran Inj) 4 mg IV.PUSH Q6H PRN PRN Reason: NAUSEA OR VOMITING Pravastatin Sodium (Pravachol) 80 mg PO QPM [facility] Senna/Docusate Sodium (Eileen-Colace) 1 tab PO BID [facility] Sennosides (Senokot) 17.2 mg PO Q12H PRN PRN Reason: Moderate Constipation Allergies Allergy/AdvReac Type Severity Reaction Status Date / Time bee venom protein (honey bee) Allergy Intermediate EDEMA Verified 04/09/18 08:10 Home Medications Medication Instructions Recorded Confirmed Type hydrochlorothiazide 25 mg PO DAILY 04/08/18 04/09/18 History lisinopril 40 mg PO DAILY 04/08/18 04/09/18 History metformin 500 mg PO DAILY 04/08/18 04/09/18 History simvastatin 40 mg PO QPM 04/08/18 04/09/18 History Exam Vital signs: Vital Signs 04/09/18 09:01 04/09/18 09:35 04/09/18 09:50 Temperature 97.1 F L Pulse Rate 144 H 140 H 113 H Respiratory Rate 18 18 18 Blood Pressure 109/67 106/67 120/80 Pulse Oximetry 95 98 96 04/09/18 11:09 04/09/18 13:45 Temperature 98.0 F Pulse Rate 135 H 76 Respiratory Rate 18 20 Blood Pressure 112/65 109/64 Pulse Oximetry 95 96 Intake & Output 04/08/18 04/09/18 04/09/18 18:59 06:59 18:59 Output Total 500 / 500 Balance -500 / -500 Weight 72.575 kg Output: Urine 500 / 500 Narrative: GENERAL: Comfortable, speaking full sentences, overweight. SKIN: Warm and dry. HEAD: Atraumatic. Normocephalic. NECK: Trachea midline. No JVD. CARDIOVASCULAR: Regular rate and rhythm. No murmurs appreciated. Distant heart sounds. RESPIRATORY: No accessory muscle use. Clear to auscultation. Breath sounds equal bilaterally. GASTROINTESTINAL: Abdomen soft, non-tender, nondistended. MUSCULOSKELETAL: Extremities without clubbing, cyanosis, or edema. No obvious deformities. NEUROLOGICAL: Awake and alert. No obvious cranial nerve deficits. Normal speech. PSYCHIATRIC: Appropriate mood and affect; insight and judgment normal. Results 04/09/18 09:15 04/09/18 09:15 Cardiac Enzymes 04/09/18 04/09/18 Range/Units 09:15 09:15 AST 23 (15-37) U/L CK-MB (CK-2) 2.4 (0.5-3.6) ng/mL Troponin I Less than 0.02 L (0.02-0.05) ng/mL B-Natriuretic Peptide 37 (0-100) pg/mL Coagulation 04/09/18 Range/Units 09:15 B-Natriuretic Peptide 37 (0-100) pg/mL CBC 04/09/18 Range/Units 09:15 WBC 9.6 (4.0-11.0) th/mm3 RBC 4.78 (4.50-5.90) mil/mm3 Hgb 14.5 (13.0-17.0) gm/dL Hct 43.5 (39.0-51.0) % Plt Count 236 (150-450) th/mm3 Neut # (Auto) 7.7 (1.8-7.7) th/mm3 Lymph # (Auto) 1.1 (1.0-4.8) th/mm3 [place] # (Auto) 0.5 (0.0-0.9) th/mm3 Eos # (Auto) 0.1 (0.0-0.4) th/mm3 Baso # (Auto) 0.2 (0.0-0.2) th/mm3 Comprehensive Metabolic Panel 04/09/18 Range/Units 09:15 Sodium 139 (136-145) meq/L Potassium 4.4 (3.5-5.1) meq/L Chloride 105 (98-107) meq/L Carbon Dioxide 24.5 (21.0-32.0) meq/L BUN 22 H (7-18) mg/dL Creatinine 1.40 H (0.60-1.30) mg/dL Calcium 8.7 (8.5-10.1) mg/dL AST 23 (15-37) U/L ALT 22 (12-78) U/L Alkaline Phosphatase 105 (45-117) U/L Total Protein 7.7 (6.4-8.2) g/dL Albumin 3.8 (3.4-5.0) g/dL Intake and Output 04/09/18 04/09/18 04/09/18 06:59 14:59 22:59 Output Total 500 / 500 Balance -500 / -500 Output: Urine 500 / 500 Other: Weight 72.575 kg Patient Weight 04/10/18 06:59 Weight 72.575 kg Assessment and Plan - Plan During preoperative evaluation for elective cataract surgery this morning, patient was noted to be in atrial fibrillation with rapid ventricular response. He has no history of atrial fibrillation and was completely asymptomatic. This is a new diagnosis of atrial fibrillation, though given he was asymptomatic with rapid ventricular response, it cannot be ascertained as to whether this is of new onset. He spontaneously cardioverted to sinus rhythm. We discussed the risks, benefits and alternatives of chronic anticoagulation therapy given his elevated chads 2 vas score of 3 (almost 2 by age), and he agrees to proceed with anti-coagulation therapy. Recommend starting Eliquis 5 mg twice daily. Start metoprolol tartrate 25 mg twice daily. Follow-up echocardiogram ordered, discharge dependent. Patient is stable for discharge home today with follow-up at my office in the next 2 weeks for continued management. Plan was discussed with the patient and hospitalist Dr. Jaret Hernandez who agree with above.
--- NOTE | 2018-04-09 16:25 | ECHRPT ---
Indication: A FIB FLUTTER CONCLUSIONS Normal sinus rhythm thoughout study. Normal left ventricular size. Mild concentric left ventricular hypertrophy. The left ventricular systolic function is normal with an estimated ejection fraction in the range of 60-65%. Mitral annular calcification is present. Trace aortic valve regurgitation. The estimated pulmonary arterial pressure is 35 mmHg. There is trace tricuspid valve regurgitation. Mild pulmonary valve regurgitation. Trace mitral valve regurgitation. BP: / HR: Rhythm: MEASUREMENTS (Male / Female) Normal Values Technical Quality: 2D ECHO LV Diastolic Diameter PLAX 4.1 cm 4.2 - 5.9 / 3.9 - 5.3 cm LV Systolic Diameter PLAX 3.1 cm IVS Diastolic Thickness 1.5 cm 0.6 - 1.0 / 0.6 - 0.9 cm LVPW Diastolic Thickness 0.8 cm 0.6 - 1.0 / 0.6 - 0.9 cm LV Relative Wall Thickness 0.6 RV Internal Dim ED PLAX 1.9 cm LA Systolic Diameter LX 3.4 cm 3.0 - 4.0 / 2.7 - 3.8 cm M-MODE AV Cusp Separation MM 1.7 cm DOPPLER Mitral E Point Velocity 80.9 cm/s Mitral A Point Velocity 117.0 cm/s Mitral E to A Ratio 0.7 TR Peak Velocity 250.0 cm/s TR Peak Gradient 25.0 mmHg Right Atrial Pressure 10.0 mmHg Pulmonary Artery Systolic Pressu 35.0 mmHg Right Ventricular Systolic Press 35.0 mmHg FINDINGS LEFT VENTRICLE Normal left ventricular size. Mild concentric left ventricular hypertrophy. The left ventricular systolic function is normal with an estimated ejection fraction in the range of 60-65%. RIGHT VENTRICLE Normal right ventricular size and systolic function. LEFT ATRIUM The left atrial size is normal. RIGHT ATRIUM The right atrial size is normal. ATRIAL SEPTUM Normal atrial septal thickness without atrial level shunting by limited color doppler interrogation. AORTA The aortic root and proximal ascending aorta are normal in size on limited imaging. MITRAL VALVE Mitral annular calcification is present. Trace mitral valve regurgitation. AORTIC VALVE Trace aortic valve regurgitation. TRICUSPID VALVE The estimated pulmonary arterial pressure is 35 mmHg. There is trace tricuspid valve regurgitation. PULMONARY VALVE Mild pulmonary valve regurgitation. VESSELS The inferior vena cava is normal in size. PERICARDIUM No pericardial effusion. Lobito Boateng (Electronically Signed) Final Date:09 April 2018 16:23
[2018-04-09] MEDS ORDERED: Insulin NovoLOG Aspart Correctional Sugar Inj SQ SCH (17:00)
[2018-04-09] MEDS ORDERED: Insulin NovoLIN Regular Correctional Sugar Inj SQ SCH (18:00)
--- NOTE | 2018-04-09 18:39 | ECG ---
Date Performed: 04/09/2018 Time Performed: 08:56:00 PTAGE: 72 years EKG: ATRIAL FIBRILLATION WITH RAPID VENTRICULAR RESPONSE MODERATE ST DEPRESSION ABNORMAL ECG PREVIOUS TRACING : 04/09/2018 08.25 Since the previous tracing, no significant change noted DOCTOR: Tr Humphrey Interpretating Date/Time 04/09/2018 18:38:41
[2018-04-09] MEDS ORDERED: Senna/Docusate Sodium 8.6/50 MG Tablet PO SCH (21:00)
[2018-04-10] MEDS ORDERED: Lisinopril 20 MG Tablet PO SCH (09:00)
[2018-04-10] MEDS ORDERED: hydroCHLOROthiazide 25 MG Tablet PO SCH (09:00)
--- NOTE | 2018-04-10 14:19 | ECG ---
Date Performed: 04/09/2018 Time Performed: 15:01:10 PTAGE: 72 years EKG: Sinus bradycardia Septal T wave changes are nonspecific Borderline ECG PREVIOUS TRACING : 04/09/2018 08.56 DOCTOR: Jonathan Boo Interpretating Date/Time 04/10/2018 14:18:17
== END 2018-04-09 16:50 | disposition home or self-care (01) ==
LOC: PHED 08:49 → INTOOBSV 11:06 → PHEDA 11:06 → OBSVTOIN 13:03 → PHEDA 13:04 → HIMC 13:35
PROVIDERS: ADMIT Hospitalist; ATTEND Hospitalist